=== PATIENT | male | born 1965 | race Two or more races ===

== ENCOUNTER 2018-10-03 21:17 | Emergency (ER) | payer OTHER ==
[~2018-10-03] VITALS: Ht 167.6 cm; Wt 75.3 kg
[2018-10-03 21:35] VITALS: BP 149/106
== END 2018-10-03 21:44 | disposition home or self-care (01) ==
LOC: ER 21:18
DX: M25.511 Pain in right shoulder (principal); F17.200 Nicotine dependence, unspecified, uncomplicated; X50.1XXA Overexertion from prolonged static or awkward postures, initial encounter; Y93.89 Activity, other specified; Y92.89 Other specified places as the place of occurrence of the external cause; Y99.8 Other external cause status